=== PATIENT | female | born 1995 | race Caucasian/White ===

== ENCOUNTER 2018-10-22 03:03 | Emergency (ER) | payer OTHER ==
[2018-10-22 03:48] LABS: CHLORIDE,CL 106 mmol/L (98-107); SODIUM,NA 142 mmol/L (136-145)
[2018-10-22] MEDS ORDERED: Diphtheria,Pertussis(Acell),Tetanus Vaccine 0.5 ML SDV ONE (03:56)
[2018-10-22 04:39] LABS: BARBITURATE SCREEN,URINE NEGATIVE (NEGATIVE); BENZODIAZEPINES SCREEN,URINE NEGATIVE (NEGATIVE); TCA SCREEN,URINE NEGATIVE (NEGATIVE); THC SCREEN,URINE 50 NG/ML POSITIVE (NEGATIVE)
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
[2018-10-22] MEDS ORDERED: Acetaminophen 325 MG Tab PO ONE (05:47)
== END 2018-10-22 06:11 | disposition home or self-care (01) ==
LOC: LL.ED 03:03
DX: S02.2XXA Fracture of nasal bones, initial encounter for closed fracture (principal); S40.021A Contusion of right upper arm, initial encounter; R41.82 Altered mental status, unspecified; R51 Headache; Z23 Encounter for immunization; V89.2XXA Person injured in unspecified motor-vehicle accident, traffic, initial encounter
CPT/HCPCS: 36000; 36415; 70450; 70486; 71045; 72125; 72170; 73060-RT; 80053; 80305-QW; 83605; 84703; 85025; 90471; 90715; 99284-25; G0480

== ENCOUNTER 2018-11-22 23:43 | Emergency (ER) | payer OTHER ==
[2018-11-22] MEDS: Bacitracin/Neomycin/Polymyxin B Oint 0.9 GM U/D Packet TOP ONE (23:52)
[2018-11-22] MEDS: Lidocaine 2% 5 ML SDV INJECT ONE (23:53)
--- NOTE | 2018-11-23 01:14 | EDM.PDOC ---
ED HPI GENERAL MEDICAL PROBLEM - General Chief Complaint: Laceration Stated Complaint: fell in shower, split nose open Time Seen by Provider: 11/22/18 23:59 Source of Information: Reports: Patient History Limitations: Reports: No Limitations - History of Present Illness Onset: Today, Sudden Duration: Minutes: (30 minutes), Getting Worse Location: Reports: Head, Face Quality: Reports: Ache, Throbbing Severity: Moderate Improves with: Reports: Movement (Lidocaine) Worsens with: Reports: Other Associated Symptoms: Reports: Other (Left foot pain) - Related Data Allergies Allergy/AdvReac Type Severity Reaction Status Date / Time No Known Allergies Allergy Verified 11/22/18 23:44 Home Meds: Home Meds . [No Known Home Meds] 11/22/18 [History] ED ROS GENERAL - Review of Systems Review Of Systems: See Below Constitutional: Reports: No Symptoms HEENT: Reports: Nose Pain Respiratory: Reports: No Symptoms Cardiovascular: Reports: No Symptoms Endocrine: Reports: No Symptoms GI/Abdominal: Reports: No Symptoms : Reports: No Symptoms Musculoskeletal: Reports: Foot Pain (Left) Skin: Reports: Other (Ablation of nose and above her eye) ED EXAM, SKIN/RASH Exam: See Below Exam Limited By: No Limitations General Appearance: Alert, WD/WN Ears: Normal External Exam, Normal Canal, Hearing Grossly Normal, Normal TMs Nose: Nasal Tenderness, Nasal Swelling, Other (Laceration of nose with irregular borders and exposure of cartilage possible fracture of the nose) Throat/Mouth: Normal Inspection, Normal Lips, Normal Teeth, Normal Gums, Normal Oropharynx, Normal Voice, No Airway Compromise Head: Facial Swelling, Facial Tenderness Neck: Normal Inspection, Supple, Non-Tender, Full Range of Motion Respiratory/Chest: No Respiratory Distress, Lungs Clear, Normal Breath Sounds, No Accessory Muscle Use, Chest Non-Tender Cardiovascular: Normal Peripheral Pulses, Regular Rate, Rhythm, No Edema, No Gallop, No JVD, No Murmur, No Rub GI/Abdominal: Normal Bowel Sounds, Soft, Non-Tender, No Organomegaly, No Distention, No Abnormal Bruit, No Mass (Female) Exam: Normal External Exam, Normal Speculum Exam, Normal Bimanual Exam Rectal (Female) Exam: Normal Exam, Normal Rectal Tone Back Exam: Normal Inspection, Full Range of Motion, NT Extremities: Normal Inspection, Normal Range of Motion, Non-Tender, No Pedal Edema, Normal Capillary Refill Neurological: Alert, Oriented, CN II-XII Intact, Normal Cognition, Normal Gait, Normal Reflexes, No Motor/Sensory Deficits Psychiatric: Normal Affect, Normal Mood Skin: Warm, Dry, Other (Abrasion on bridge of nose and nose) Location, Skin: Face Lymphatic: No Adenopathy ED SKIN PROCEDURES - Laceration/Wound Repair Distal Nare Anesthetic Type: Local Local Anesthesia - Lidocaine (Xylocaine): 2% Plain Local Anesthetic Volume: Other (10mls) Exploration/Debridement/Repair: Multiple Flaps Aligned Closed with: Sutures Lac/Wound length In cm: 3 Suture Size: 5-0 # of Sutures: 5 Suture Type: Nylon, Interrupted Course - Vital Signs Last Recorded V/S: Last Vital Signs Temp 99.1 F 11/22/18 23:48 Pulse 68 11/22/18 23:48 Resp 14 11/22/18 23:48 BP 111/79 11/22/18 23:48 Pulse Ox 100 11/22/18 23:48 - Orders/Labs/Meds Orders: Active Orders 24 hr Category Date Time Status Foot Comp Min 3V Lt [CR] Stat Exams 11/22/18 23:48 Ordered Meds: Medications Discontinued Medications Generic Name Dose Route Start Last Admin Trade Name Dylanq PRN Reason Stop Dose Admin Lidocaine 5 ml 11/22/18 23:47 11/22/18 23:53 Xylocaine-Mpf 2% INJECT 11/22/18 23:48 5 ml ONETIME ONE Administration Lidocaine 5 ml 11/23/18 00:03 Xylocaine-Mpf 2% INJECT 11/23/18 00:04 ONETIME ONE Lidocaine Confirm 11/23/18 00:51 Xylocaine-Mpf 2% Administered 11/23/18 00:52 Dose 5 ml .ROUTE .STK-MED ONE Neomycin/Polymyxin/Bacitracin 1 each 11/22/18 23:47 11/22/18 23:52 Triple Antibiotic Oint TOP 11/22/18 23:48 1 each ONETIME ONE Administration Departure - Departure Time of Disposition: 01:27 Disposition: DC/Tfer to [facility] 02 Clinical Impression: Trauma Laceration of nose, complex Qualifiers: Encounter type: initial encounter Qualified Code(s): S01.21XA - Laceration without foreign body of nose, initial encounter Fracture of fifth metatarsal bone of left foot Qualifiers: Encounter type: initial encounter Fracture type: closed Fracture alignment: nondisplaced Qualified Code(s): S92.355A - Nondisplaced fracture of fifth metatarsal bone, left foot, initial encounter for closed fracture - Discharge Information *PRESCRIPTION DRUG MONITORING PROGRAM REVIEWED*: No *COPY OF PRESCRIPTION DRUG MONITORING REPORT IN PATIENT ESTHER: No Instructions: Wound Care, Adult, Sutured Wound Care Care Plan Goals: At this time it was decided to send the patient to plastic surgery since the laceration is complex and there is exposure of cartilage I approximated the tissue and covered it as best as I could but I feel that patient needs to be seen by plastic surgery for reconstruction as far as the metatarsal fracture on the left foot this is proximal nondisplaced I went ahead and placed her on a walking boot and we'll see her in 2 weeks follow-up patient will be transferred to [facility] lulu accepted her patient will be going by car with mom - My Orders Last 24 Hours: My Active Orders 11/22/18 23:48 Foot Comp Min 3V Lt [CR] Stat - Assessment/Plan Last 24 Hours: My Active Orders 11/22/18 23:48 Foot Comp Min 3V Lt [CR] Stat
[2018-11-23] MEDS: Lidocaine 2% 5 ML SDV INJECT ONE (02:22)
[2018-11-23] MEDS: Lidocaine 2% 5 ML SDV ONE (02:22)
== END 2018-11-23 02:00 ==
LOC: LL.ED 23:43
DX: S92.355A Nondisplaced fracture of fifth metatarsal bone, left foot, initial encounter for closed fracture (principal); S01.21XA Laceration without foreign body of nose, initial encounter; W18.2XXA Fall in (into) shower or empty bathtub, initial encounter
CPT/HCPCS: 12013; 73630; 99285; J2001

== ENCOUNTER 2018-12-07 12:40 | Emergency (ER) | payer SELFPAY ==
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
[2018-12-07 13:40] LABS: CHLORIDE,CL 102 mmol/L (98-107); SODIUM,NA 142 mmol/L (136-145)
== END 2018-12-07 14:30 | disposition home or self-care (01) ==
LOC: LL.ED 12:40
DX: S92.355D Nondisplaced fracture of fifth metatarsal bone, left foot, subsequent encounter for fracture with routine healing (principal); X58.XXXD Exposure to other specified factors, subsequent encounter
CPT/HCPCS: 36415; 80048; 85025; 85379; 99283

== ENCOUNTER 2019-09-11 17:51 | Emergency (ER) | payer MEDICAID ==
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
== END 2019-09-11 19:10 | disposition home or self-care (01) ==
LOC: LL.ED 17:51
DX: S02.2XXA Fracture of nasal bones, initial encounter for closed fracture (principal); S02.401A Maxillary fracture, unspecified side, initial encounter for closed fracture; Y04.0XXA Assault by unarmed brawl or fight, initial encounter
CPT/HCPCS: 70486; 99284-25